=== PATIENT | female | born 1985 | race African-American/Black ===

== ENCOUNTER 2017-02-21 20:00 | Emergency (ER) | payer OTHER ==
[2017-03-04] MEDS ORDERED: IBU800 PO (11:10)
[2017-03-04] MEDS ORDERED: BIRTH CONTROL PO (11:10)
[2017-03-06] MEDS ORDERED: DSS PO (10:00)
[2017-03-06] MEDS ORDERED: GLUCPH PO (10:00)
[2017-03-06] MEDS ORDERED: ZOFRAN4 PO (10:01)
[2017-03-06] MEDS ORDERED: SENTAB PO (10:01)
[2017-03-06] MEDS ORDERED: ULTRAM50 PO (10:02)
== END 2017-02-21 20:17 | disposition home or self-care (01) ==
LOC: ER 20:00
DX: J01.90 Acute sinusitis, unspecified (principal); I10 Essential (primary) hypertension
CPT/HCPCS: 99283